=== PATIENT | female | born 1975 | race Two or more races ===

== ENCOUNTER 2024-08-03 05:24 | Inpatient (IN) | payer OTHER ==
[2024-07-30 11:59] VITALS: BP 112/78
[~2024-08-03] VITALS: Ht 165.1 cm; Wt 80.7 kg
[2024-08-03] MEDS ORDERED: CEFAZOLIN SODIUM 1,000 MG VIAL ONE (08:16)
[2024-08-03] MEDS ORDERED: POVIDONE-IODINE 118 ML BOTT TOP ONE (08:30)
[2024-08-03] MEDS ORDERED: LIDOCAINE HCL 1%/EPINEPHRINE 20ML VIAL IJ ONE (08:30)
[2024-08-03] MEDS ORDERED: BUPIVACAINE HCL/MPF 0.5% 30ML VIAL ONE (08:30)
[2024-08-03] MEDS ORDERED: SURGIFLO APPLICATOR 1 EACH APPL TOP ONE (11:22)
[2024-08-03] MEDS ORDERED: HEMOSTATIC MATRIX 1 KIT KIT TOP ONE (11:22)
[2024-08-03] MEDS ORDERED: hydrALAZINE HCL 20 MG VIAL ONE (11:30)
[2024-08-03] MEDS ORDERED: THROMBIN,HU/FIBRINOGEN/CALCIUM 10 ML SYRINGE TOP ONE (11:53)
[2024-08-03] MEDS ORDERED: PROMETHAZINE HCL 25 MG/ML AMPUL IV SCH (13:51)
[2024-08-03] MEDS ORDERED: MEPERIDINE HCL/PF 50 MG/ML VIAL IV SCH (13:51)
[2024-08-03] MEDS ORDERED: MORPHINE SULFATE 4 MG/ML VIAL IV ONE (15:00)
[2024-08-03] MEDS ORDERED: ONDANSETRON HCL 2 MG/ML VIAL ONE (15:20)
[2024-08-03 15:59] LABS: HEMATOCRIT 36.9 % (36.0-45.00); HEMOGLOBIN 12.1 g/dL (12.0-15.00); MEAN CORPUSCULAR HEMOGLOBIN 27.3 pg (27.00-32.0); MEAN CORPUSCULAR HGB CONC 32.9 g/dl (32.0-36.0); PLATELET COUNT 298 K/uL (150-450); RED BLOOD COUNT 4.44 M/uL (4.00-6.00); RED CELL DISTRIBUTION WIDTH 14.2 % (11.5-14.5)
[2024-08-03 16:30] VITALS: BP 117/65; O2SAT 99
[2024-08-03 20:00] VITALS: BP 125/84
[2024-08-03] MEDS ORDERED: IBUprofen 800 MG TABLET PO SCH (20:00)
[2024-08-03] MEDS ORDERED: ACETAMINOPHEN 500 MG GEL..CAP PO SCH (20:00)
[2024-08-03] MEDS ORDERED: ACETAMINOPHEN WITH CODEINE 1 UDTAB TABLET PO SCH (20:00)
[2024-08-03] MEDS ORDERED: SIMETHICONE 125 MG CAPSULE PO SCH (21:00)
[2024-08-03] MEDS ORDERED: GABAPENTIN 300 MG CAPSULE PO SCH (21:00)
[2024-08-03] MEDS ORDERED: ONDANSETRON HCL 2 MG/ML VIAL IV STA (21:12)
[2024-08-04 00:52] VITALS: BP 109/75
[2024-08-04 04:00] VITALS: BP 95/65
[2024-08-04 04:00] LABS: HEMATOCRIT 31.9 % (36.0-45.00); HEMOGLOBIN 10.5 g/dL (12.0-15.00); MEAN CELL VOLUME 83.3 fL (80.00-100.00); MEAN CORPUSCULAR HEMOGLOBIN 27.3 pg (27.00-32.0); MEAN CORPUSCULAR HGB CONC 32.8 g/dl (32.0-36.0); PLATELET COUNT 269 K/uL (150-450); RED BLOOD COUNT 3.83 M/uL (4.00-6.00); RED CELL DISTRIBUTION WIDTH 14.3 % (11.5-14.5)
[2024-08-04] MEDS ORDERED: PAIN RELIEVER500 M2 PO (06:38)
[2024-08-04] MEDS ORDERED: GABAPENTIN300 MG PO (06:39)
[2024-08-04] MEDS ORDERED: ACETAMINOPHEN-1 EAC2 PO (06:39)
[2024-08-04] MEDS ORDERED: SIMETHICONE125 M1 PO (06:39)
[2024-08-04 08:41] VITALS: BP 100/68
== END 2024-08-04 08:55 | disposition home or self-care (01) | DRG 743 ==
LOC: O/R 05:24 → OB/GYN 05:24
PROVIDERS: ADMIT Obstetrics & Gynecology; ATTEND Obstetrics & Gynecology
PROC: 0UT9FZZ Resection of Uterus, Via Natural or Artificial Opening With Percutaneous Endoscopic Assistance (ICD-10-PCS; principal; 2024-08-03 10:00)
DX: N80.03 Adenomyosis of the uterus (principal); N72 Inflammatory disease of cervix uteri; D25.9 Leiomyoma of uterus, unspecified; R10.2 Pelvic and perineal pain; N93.9 Abnormal uterine and vaginal bleeding, unspecified